=== PATIENT | male | born 1975 | race Caucasian/White ===

== ENCOUNTER → 2016-08-05 | Outpatient (REF) | payer OTHER ==
[2016-08-07 00:06] LABS: Lyme Disease IgG/IgM Antibodie <0.91 ISR (0.00-0.90); Lyme Disease IgM Ab Quantitati <0.80 index (0.00-0.79)
== END ==
LOC: M LAB REF 13:23
PROVIDERS: ATTEND Nurse Practitioner Family
DX: L08.89 Other specified local infections of the skin and subcutaneous tissue (principal); W57.XXXA Bitten or stung by nonvenomous insect and other nonvenomous arthropods, initial encounter

== ENCOUNTER → 2017-01-02 | Outpatient (CLI) | payer OTHER ==
[~2017-01-02] MED LIST: ALEV220T26 PO; EXCETAB81 PO
[2017-01-02 14:19] LABS: MEAN CORPUSCULAR HEMOGLOBIN 30.9 pg (27.0-33.0); MEAN CORPUSCULAR HGB CONC 33.5 g/dl (32.0-36.5); MEAN CORPUSCULAR VOLUME 92.1 fl (80.0-96.0); PLATELET COUNT, AUTOMATED 196 10^3/uL (150-450); RED CELL DISTRIBUTION WIDTH 12.2 % (11.5-14.5); WHITE BLOOD COUNT 7.6 10^3/uL (4.0-10.0)
[2017-01-02 15:02] LABS: ANION GAP 7 MEQ/L (8-16); BLOOD UREA NITROGEN 18 MG/DL (7-18); CALCIUM LEVEL 8.8 MG/DL (8.5-10.1); CARBON DIOXIDE LEVEL 29 MEQ/L (21-32); CHLORIDE LEVEL 107 MEQ/L (98-107); CREATININE FOR GFR 1.03 MG/DL (0.70-1.30); GLOMERULAR FILTRATION RATE > 60.0 (>60); GLUCOSE, FASTING 91 MG/DL (70-105); POTASSIUM SERUM 4.4 MEQ/L (3.5-5.1); SODIUM LEVEL 143 MEQ/L (136-145)
== END ==
LOC: M LAB 13:13
PROVIDERS: ATTEND Internal Medicine
DX: Z00.00 Encounter for general adult medical examination without abnormal findings (principal)

== ENCOUNTER 2017-01-03 05:57 | Day surgery (SDC) | payer OTHER ==
[~2017-01-03] VITALS: Ht 185.4 cm; Wt 129.3 kg
[2017-01-03] MEDS ORDERED: CEFAZOLIN SOD 1 GM in APPROPRIATE DILUENT 1 EA IV ONE (06:15)
[2017-01-03] MEDS ORDERED: LIDOCAINE 1% MDV 20ML VIAL SQ PRN (06:15)
[2017-01-03] MEDS ORDERED: LR 1,000 ML IV SCH ×3 (06:15→10:00)
[2017-01-03] MEDS ORDERED: fentaNYL 250 MCG/5 ML INJECTION (J3010) As Ordered ONE (07:09)
[2017-01-03] MEDS ORDERED: MIDAZOLAM INJ 2 MG/2 ML VIAL (J2250) As Ordered ONE (07:09)
[2017-01-03] MEDS ORDERED: LIDOCAINE 2% INJ 100 MG/5 ML SDV (FOR ANES.) As Ordered ONE (07:13)
[2017-01-03] MEDS ORDERED: PROPOFOL 200 MG/20 ML VIAL As Ordered ONE ×2 (07:13→08:14)
[2017-01-03] MEDS ORDERED: ROCURONIUM BROMIDE 50 MG/5 ML VIAL/SYRINGE As Ordered ONE (07:14)
[2017-01-03] MEDS ORDERED: BUPIVACAINE/EPIN 0.25% 30 ML VIAL As Ordered ONE ×2 (07:14→09:06)
[2017-01-03] MEDS ORDERED: KETOROLAC 60 MG/2 ML VIAL (J1885) As Ordered ONE (09:04)
[2017-01-03] MEDS ORDERED: ONDANSETRON 4MG/2ML VIAL (J2405) As Ordered ONE (09:04)
[2017-01-03] MEDS ORDERED: ONDANSETRON 4MG/2ML VIAL (J2405) IV PRN ×2 (09:45→10:00)
[2017-01-03] MEDS: fentaNYL 100 MCG/2 ML INJECTION (J3010) IV PRN ×4 (09:49→10:04)
[2017-01-03] MEDS ORDERED: NORCO, ANEXSIA 5/325MG TABLET (HYDROcodone/ACETAMINOPHEN) PO PRN (10:00)
[2017-01-03] MEDS ORDERED: MORPHINE 2 MG/ML 1ML SYRINGE IV PRN (10:00)
[2017-01-03] MEDS: MEPERIDINE INJ 25 MG/ML VIAL (J2175) IV PRN ×2 (10:27→10:34)
[2017-01-03 11:10] VITALS: BP 109/58
[2017-01-03] MEDS ORDERED: KETOROLAC 30 MG/ML VIAL (J1885) IV SCH (15:00)
--- NOTE | 2017-01-04 18:57 | RO ---
DATE OF PROCEDURE: 01/03/2017 PREOPERATIVE DIAGNOSIS: Left inguinal hernia. POSTOPERATIVE DIAGNOSIS: Left inguinal hernia. PROCEDURE: Laparoscopic left inguinal hernia repair with 3-D Max mesh (TEPP) SURGEON: Elbert Orellana ANESTHESIA: General endotracheal anesthesia. ESTIMATED BLOOD LOSS: Was minimal. FLUIDS: Crystalloid. BRIEF PROCEDURE SUMMARY: The patient was brought to the operating room and was given general anesthesia after adequate anesthesia and preoperative antibiotics were given the patient was prepped and draped in sterile fashion. Next, a periumbilical incision was made with skin knife. Blunt dissection was carried down to fascia. Fascia was incised with electrocautery longitudinally and the rectus muscle was retracted laterally and anteriorly. Dissection was performed in the preperitoneal space with a dilating balloon under direct visualization and a stationary balloon was placed in the preperitoneal space insufflated to 15 mm of pressure. Two 5 mm trocars were placed along the midline after this. Next the loose areolar tissue covering the posterior aspect of the pubis and Marcellus's was taken down with hook cautery and then blunt dissection lateral to the internal ring was performed to find the hernia / peritoneum dissection continued up lateral again because of a relatively low transverse abdominis muscle fascia and this continued up to the cord structures. The peritoneum was dissected off the cord structures after a good deal of dissection. Eventually once this was dissected where the hernia developed or went into the pelvis, the loose areolar tissue / fatty tissue overlying the vessels was taken down with hook cautery as well. Next a 3-D Max mesh large was tacked in place with a secure strap and both on the Marcellus's pubis and lateral on the tail of the mesh as well as on anteriorly on the rectus muscle area was desufflated under direct visualization and 0 Vicryl was used close the fascia at the umbilicus and 4-0 Vicryl was used to close all incisions. Steri-Strips and dry sterile dressing was applied. The patient was awakened from anesthesia, extubated, brought to recovery room awake, alert, hemodynamically stable. Sponge and needle counts correct times two.
== END 2017-01-03 12:00 | disposition home or self-care (01) ==
LOC: M SDC 05:57
PROVIDERS: ATTEND Surgery
DX: K40.90 Unilateral inguinal hernia, without obstruction or gangrene, not specified as recurrent (principal); I49.8 Other specified cardiac arrhythmias; G47.30 Sleep apnea, unspecified; Z79.899 Other long term (current) drug therapy
CPT/HCPCS: 49650; C1781; J0690; J1885; J2175; J2250; J2405; J3010

== ENCOUNTER 2017-01-25 07:33 | Day surgery (SDC) | payer OTHER ==
[~2017-01-25] VITALS: Ht 185.4 cm; Wt 131.5 kg
[2017-01-25] MEDS ORDERED: LR 1,000 ML IV ONE (07:45)
[2017-01-25] MEDS ORDERED: fentaNYL 100 MCG/2 ML INJECTION (J3010) As Ordered ONE (07:56)
[2017-01-25] MEDS ORDERED: MIDAZOLAM INJ 2 MG/2 ML VIAL (J2250) As Ordered ONE (07:56)
[2017-01-25] MEDS ORDERED: PROPOFOL 200 MG/20 ML VIAL As Ordered ONE ×8 (07:56→11:30)
[2017-01-25] MEDS ORDERED: LIDOCAINE 2% INJ 100 MG/5 ML SDV (FOR ANES.) As Ordered ONE (07:56)
[2017-01-25] MEDS ORDERED: BUPIVACAINE HCL 0.5% 30 ML VIAL As Ordered ONE (08:39)
[2017-01-25] MEDS ORDERED: LIDOCAINE 1% MDV 20ML VIAL As Ordered ONE ×2 (08:39→09:29)
[2017-01-25] MEDS ORDERED: dexameTHASONE 4 MG/ML 1ML VIAL (J1100) As Ordered ONE ×2 (08:40→10:10)
[2017-01-25] MEDS ORDERED: HYDR-3713 PO (11:44)
[2017-01-25] MEDS ORDERED: KETOROLAC 30 MG/ML VIAL (J1885) As Ordered ONE (11:58)
[2017-01-25] MEDS ORDERED: ONDANSETRON 4MG/2ML VIAL (J2405) IV PRN (12:15)
[2017-01-25] MEDS ORDERED: KETOROLAC 30 MG/ML VIAL (J1885) IV PRN (12:15)
[2017-01-25] MEDS ORDERED: LR 1,000 ML IV SCH (12:15)
[2017-01-25] MEDS ORDERED: fentaNYL 100 MCG/2 ML INJECTION (J3010) IV PRN (12:15)
[2017-01-25] MEDS: PERCOCET 5MG/325MG TAB PO PRN ×2 (12:20→13:00)
--- NOTE | 2017-01-25 12:55 | RO ---
DATE OF PROCEDURE: 01/25/2017 PREPROCEDURE DIAGNOSIS: Bilateral hallux rigidus. POSTPROCEDURE DIAGNOSIS: Bilateral hallux rigidus. PROCEDURE: Bilateral first metatarsophalangeal joint fusion. SURGEON: Nathanael Underwood DPM WIDE LOAD ESCORT: ANESTHESIA: Monitored anesthesia care, preoperative injection of 30 mL of 1:1 mixture of 1% lidocaine plain and 0.5% Marcaine plain. ESTIMATED BLOOD LOSS: Minimal. MATERIALS: Arthrex 3.5 headless screws, #3-0 and #4-0 Vicryl and #4-0 nylon. INJECTABLES: 2 mL of Decadron 4 mg per mL. Additional injectables of 10 mL of 1% Lidocaine plain. COMPLICATIONS: None. CONDITION: Stable. Buster Wei is a 41-year-old male who presents to [facility] with complaints of painful arthritic joints to his feet. He presents today for surgical correction. The patient, side, and site were identified and marked in preoperative holding area. Consent was reviewed and obtained. The complications and alternatives to the procedure were explained to the patient in detail and all questions were answered. DESCRIPTION OF PROCEDURE: The patient was brought to the operating room and placed on the operating room table in supine position. Monitored anesthesia care was delivered by the anesthesia team. The patient received Ancef preoperatively. Preoperative injection of 30 mL of 1:1 mixture of 1% lidocaine plain and 0.5% Marcaine plain was injected into both feet, 15 on each. Both feet were prepped and draped in the normal fashion. Tourniquets were applied to both ankles and inflated to 250 mmHg, first done on the right side. Attention was drawn to the first metatarsophalangeal joint and a doral incision was drawn and carried through with a #15 blade. Dissection was carried down until the metatarsophalangeal joint capsule was identified. Bovie was used to maintain hemostasis along the way. T-capsulotomy was performed exposing the metatarsal head and joint. Severe arthritic changes were noted with large osteophytes and exostosis to the dorsal, medial and lateral aspect of the joint. There were severe arthritic changes with erosion of cartilage noted to nearly the entire metatarsal head, as well as phalanx base. After the osteophytes and exostosis were removed with sagittal saw, the remaining cartilage was removed using the Arthrex reamer on both the metatarsal head and phalanx base. A pin was used to fenestrate the head of the metatarsal and base of the phalanx. Following this, under fluoroscopic guidance, cross screws were thrown using Arthrex 3.5 headless screws. Good position was noted. Good purchase in the bone was available. The site was irrigated with normal saline. Any remaining bone edges were smoothed with a rasp. Again, the site was irrigated. Capsular repair was performed with #3-0 Vicryl, subcutaneous with #4-0 Vicryl and skin closure with #4-0 nylon. The same procedure was performed on the left. The tourniquet on the right was deflated and inflated on the left side. Dorsal incisions were drawn and carried through with a #15 blade. Dissection was carried to the metatarsophalangeal joint capsule. Again, a T-capsulotomy was performed exposing the metatarsal head and joint. Some erosion was noted to the cartilage where again large osteophytes and exostoses were noted. These were removed with Rongeur and sagittal saw. The cartilage was denuded with Arthrex reamers and two cross screws were thrown, size 3.5 headless under fluoroscopic guidance. Remaining bone edges were rasped until smooth. The site was irrigated with normal saline. Capsular repair was performed with #3-0 Vicryl, subcutaneous with #4-0 Vicryl. Skin closure with #4-0 nylon. 1 mL of Decadron was injected on both feet. Sterile dressings were applied. The tourniquet was deflated. The patient was brought to postanesthesia care unit (PACU) stable, neurovascularly intact. He will be partial weight bearing to both feet. He will followup in the office in 2 days.
[2017-01-25 14:00] VITALS: BP 138/76
--- NOTE | 2017-01-25 14:20 | REP ---
Foot series: Single view. History: Intraoperative film. 15 seconds of fluoroscopy time is reported. Findings: A single fluoroscopically obtained last image hold spot radiograph documents pins across the first MTP joint. No laterality markers are seen. Signed by Ki Heller MD 01/25/2017 02:46 P
== END 2017-01-25 14:07 | disposition home or self-care (01) ==
LOC: M SDC 07:33
PROVIDERS: ATTEND Podiatrist Foot & Ankle Surgery
DX: M20.21 Hallux rigidus, right foot (principal); M20.22 Hallux rigidus, left foot; R00.9 Unspecified abnormalities of heart beat; I44.30 Unspecified atrioventricular block; M19.90 Unspecified osteoarthritis, unspecified site; G47.30 Sleep apnea, unspecified; E66.9 Obesity, unspecified
CPT/HCPCS: 28750; 73630; 88300; 97116; C1713; J0690; J1100; J1885; J2250; J3010

== ENCOUNTER 2017-06-02 08:47 | Emergency (ER) | payer OTHER ==
[2017-06-02] MEDS: NS 1,000 ML IV ×2 (09:08→10:15)
[2017-06-02 09:10] LABS: BASO % 0.2 % (0.0-1.0); HEMATOCRIT 45.8 % (42.0-52.0); HEMOGLOBIN 15.3 g/dl (13.5-17.5); IMMATURE GRANULOCYTE % 0.5 % (0-3.0); LYMPH # 0.6 10^3/uL (1.5-4.5); MEAN CORPUSCULAR HEMOGLOBIN 30.7 pg (27.0-33.0); MEAN CORPUSCULAR HGB CONC 33.4 g/dl (32.0-36.5); MONO # 0.3 10^3/uL (0.0-0.8); MONO % 2.7 % (0.0-5.0); NEUTROPHILS # 11.3 10^3/uL (1.8-7.7); NEUTROPHILS % 91.6 % (36.0-66.0); PLATELET COUNT, AUTOMATED 171 10^3/uL (150-450); RED BLOOD COUNT 4.98 10^6/uL (4.30-6.10); RED CELL DISTRIBUTION WIDTH 12.6 % (11.5-14.5); WHITE BLOOD COUNT 12.4 10^3/uL (4.0-10.0)
[2017-06-02 09:48] LABS: LACTIC ACID SEPSIS PROTOCOL 7.8 MMOL/L (0.4-2.0)
[2017-06-02 09:50] LABS: ALBUMIN 4.2 GM/DL (3.2-5.2); ALBUMIN/GLOBULIN RATIO 1.11 (1.00-1.93); ALKALINE PHOSPHATASE 77 U/L (45-117); ALT/SGPT 48 U/L (12-78); ANION GAP 12 MEQ/L (8-16); AST/SGOT 55 U/L (7-37); BILIRUBIN,DIRECT 0.2 MG/DL (0.0-0.2); BILIRUBIN,TOTAL 0.8 MG/DL (0.2-1.0); BLOOD UREA NITROGEN 12 MG/DL (7-18); CALCIUM LEVEL 8.4 MG/DL (8.5-10.1); CARBON DIOXIDE LEVEL 23 MEQ/L (21-32); CHLORIDE LEVEL 108 MEQ/L (98-107); CPK CREATINE PHOSPHOKINASE 160 U/L (39-308); CREATININE FOR GFR 1.48 MG/DL (0.70-1.30); GLOMERULAR FILTRATION RATE 56.3 (>60); GLUCOSE, FASTING 237 MG/DL (70-100); SALICYLATE LEVEL 1.7 MG/DL (5.0-30.0); SODIUM LEVEL 143 MEQ/L (136-145)
[2017-06-02 09:52] LABS: ACETAMINOPHEN LEVEL < 2.0 UG/ML (10.0-30.0); ETHYL ALCOHOL (ETHANOL) < 0.003 % (0.000-0.010)
[2017-06-02 13:06] LABS: LACTIC ACID SEPSIS PROTOCOL 1.2 MMOL/L (0.4-2.0)
[2017-06-02 13:44] LABS: AMPHETAMINES LEVEL URINE NEGATIVE (NEGATIVE); BARBITURATES URINE NEGATIVE (NEGATIVE); BENZODIAZEPINES URINE NEGATIVE (NEGATIVE); CANNABINOIDS URINE NEGATIVE (NEGATIVE); COCAINE METABOLITE URINE POSITIVE (NEGATIVE); METHADONE URINE NEGATIVE (NEGATIVE); OPIATES URINE NEGATIVE (NEGATIVE); PHENCYCLIDINE URINE NEGATIVE (NEGATIVE)
[2017-06-02] MEDS: ONDANSETRON 4MG/2ML VIAL (J2405) IV (14:25)
== END 2017-06-02 14:55 | disposition home or self-care (01) ==
LOC: M ED 08:47
DX: F10.129 Alcohol abuse with intoxication, unspecified (principal); F14.129 Cocaine abuse with intoxication, unspecified; F17.210 Nicotine dependence, cigarettes, uncomplicated; I44.30 Unspecified atrioventricular block
CPT/HCPCS: J2405

== ENCOUNTER 2017-06-09 08:03 | Emergency (ER) | payer OTHER | END 2017-06-09 09:51 | disposition home or self-care (01) | LOC: M ED 08:03 | DX: F14.10 Cocaine abuse, uncomplicated (principal) | CPT/HCPCS: 99283 ==

== ENCOUNTER → 2019-03-22 | Outpatient (REF) | payer OTHER ==
[~2019-03-22] MED LIST changes: +HYDR-3713 PO
[2019-03-22 13:27] LABS: SEMEN APPEARANCE OPAQUE (OPAQUE); SEMEN VISCOSITY LIQUID (LIQUID); SEMEN VOLUME 6.5 ml (2.0-5.0)
[2019-03-22 13:28] LABS: WBC CONCENTRATION <=1 M/ml (<=1 M/ml)
== END ==
LOC: M LAB REF 12:36
PROVIDERS: ATTEND Urology
DX: Z98.52 Vasectomy status (principal)

== ENCOUNTER → 2022-01-10 | Outpatient (CLI) | payer OTHER ==
[~2022-01-10] MED LIST changes: +GASTROGRAFIN SOLUTION 30ML As Ordered ONE
== END ==
LOC: M RAD 08:07
PROVIDERS: ATTEND Surgery
DX: R10.32 Left lower quadrant pain (principal)

== ENCOUNTER → 2022-04-08 | Outpatient (CLI) | payer OTHER ==
[~2022-04-08] MED LIST changes: -GASTROGRAFIN SOLUTION 30ML As Ordered ONE
== END ==
LOC: M OUTALCOH 07:56
PROVIDERS: ATTEND Psychiatry & Neurology Psychiatry
DX: Z13.39 Encounter for screening examination for other mental health and behavioral disorders (principal)

== ENCOUNTER 2022-04-22 15:04 | Outpatient (RCR) | payer OTHER | END 2022-05-13 | LOC: M OUTALCOH 15:04 | PROVIDERS: ATTEND Psychiatry & Neurology Psychiatry | DX: F14.20 Cocaine dependence, uncomplicated (principal); F15.20 Other stimulant dependence, uncomplicated; F12.10 Cannabis abuse, uncomplicated ==

== ENCOUNTER 2022-06-08 15:00 | Outpatient (RCR) | payer OTHER | END 2022-06-12 | LOC: M OUTALCOH 15:00 | PROVIDERS: ATTEND Psychiatry & Neurology Psychiatry | DX: F14.20 Cocaine dependence, uncomplicated (principal); F15.20 Other stimulant dependence, uncomplicated; F12.10 Cannabis abuse, uncomplicated ==

== ENCOUNTER 2022-07-06 15:00 | Outpatient (RCR) | payer OTHER | END 2022-07-13 | LOC: M OUTALCOH 15:00 | PROVIDERS: ATTEND Psychiatry & Neurology Psychiatry | DX: F14.20 Cocaine dependence, uncomplicated (principal); F15.20 Other stimulant dependence, uncomplicated; F12.10 Cannabis abuse, uncomplicated ==

== ENCOUNTER → 2023-03-08 | Outpatient (CLI) | payer OTHER ==
[2023-03-08 12:59] LABS: HEMATOCRIT 40.3 % (42.0-52.0); HEMOGLOBIN 13.6 g/dl (13.5-17.5); MEAN CORPUSCULAR HEMOGLOBIN 30.4 pg (27.0-33.0); MEAN CORPUSCULAR HGB CONC 33.7 g/dl (32.0-36.5); PLATELET COUNT, AUTOMATED 264 10^3/uL (150-450); RED BLOOD COUNT 4.48 10^6/uL (4.30-6.10); WHITE BLOOD COUNT 5.5 10^3/uL (4.0-10.0)
[2023-03-08 13:47] LABS: BLOOD UREA NITROGEN 15 MG/DL (9-23); CALCIUM LEVEL 9.3 MG/DL (8.5-10.1); CARBON DIOXIDE LEVEL 26 MMOL/L (20-31); CHLORIDE LEVEL 104 MMOL/L (98-107); CREATININE FOR GFR 0.78 MG/DL (0.70-1.30); GLOMERULAR FILTRATION RATE > 60.0 (>60); GLUCOSE, FASTING 92 MG/DL (60-100); MAGNESIUM LEVEL 2.1 MG/DL (1.8-2.4); POTASSIUM SERUM 4.3 MMOL/L (3.5-5.1); SODIUM LEVEL 136 MMOL/L (136-145); THYROID STIMULATING HORMONE 1.112 uIU/ML (0.55-4.78)
== END ==
LOC: M LAB 12:09
PROVIDERS: ATTEND Physician Assistant
DX: R07.2 Precordial pain (principal)

== ENCOUNTER → 2023-03-09 | Outpatient (CLI) | payer OTHER | LOC: M PLAIMG 12:54 | PROVIDERS: ATTEND Physician Assistant | DX: R07.2 Precordial pain (principal); I48.3 Typical atrial flutter; I48.0 Paroxysmal atrial fibrillation; I51.7 Cardiomegaly; I35.8 Other nonrheumatic aortic valve disorders; I31.39 Other pericardial effusion (noninflammatory) ==

== ENCOUNTER → 2023-03-21 | Outpatient (CLI) | payer OTHER ==
[~2023-03-21] MED LIST changes: +ISOVUE-370 76% 100ML VIAL As Ordered ONE
== END ==
LOC: M RAD 08:05
PROVIDERS: ATTEND Physician Assistant
DX: R07.2 Precordial pain (principal); I27.81 Cor pulmonale (chronic)
CPT/HCPCS: 71260; Q9967

== ENCOUNTER → 2023-03-24 | Outpatient (REF) | payer OTHER ==
[~2023-03-24] MED LIST changes: -ISOVUE-370 76% 100ML VIAL As Ordered ONE
== END ==
LOC: M LAB REF 12:40
PROVIDERS: ATTEND Internal Medicine
DX: F41.9 Anxiety disorder, unspecified (principal); G47.33 Obstructive sleep apnea (adult) (pediatric)

== ENCOUNTER → 2023-04-10 | Outpatient (CLI) | payer OTHER ==
[~2023-04-10] MED LIST changes: +ATEN50TA2 PO; +COLC0.6T47 PO; +DIGO0.123 PO; +MENSCAP PO; +PRED20TA PO
== END ==
LOC: M PLAIMG 07:55
PROVIDERS: ATTEND Physician Assistant
DX: I31.39 Other pericardial effusion (noninflammatory) (principal); R07.2 Precordial pain; I48.3 Typical atrial flutter

== ENCOUNTER 2023-04-12 12:10 | Day surgery (SDC) | payer OTHER ==
[~2023-04-12] VITALS: Ht 185.4 cm; Wt 120.0 kg
[~2023-04-12 12:10] MED LIST changes: -ATEN50TA2 PO; -COLC0.6T47 PO; -DIGO0.123 PO; -MENSCAP PO; -PRED20TA PO
[2023-04-12] MEDS ORDERED: PRED20TA PO (12:17)
[2023-04-12] MEDS ORDERED: ATEN50TA2 PO (12:17)
[2023-04-12] MEDS ORDERED: DIGO0.123 PO (12:23)
[2023-04-12] MEDS ORDERED: COLC0.6T47 PO (12:23)
[2023-04-12 14:30] LABS: BASO % 0.1 % (0.0-1.0); EOS # 0.1 10^3/uL (0.0-0.5); EOS % 0.9 % (0.0-3.0); HEMATOCRIT 45.1 % (42.0-52.0); HEMOGLOBIN 15.1 g/dl (13.5-17.5); LYMPH # 2.4 10^3/uL (1.5-5.0); LYMPH % 23.6 % (24.0-44.0); MEAN CORPUSCULAR HEMOGLOBIN 30.6 pg (27.0-33.0); MEAN CORPUSCULAR HGB CONC 33.5 g/dl (32.0-36.5); MEAN CORPUSCULAR VOLUME 91.5 fl (80.0-96.0); MONO # 0.6 10^3/uL (0.0-0.8); MONO % 5.8 % (2.0-8.0); NEUTROPHILS % 69.1 % (36.0-66.0); PLATELET COUNT, AUTOMATED 165 10^3/uL (150-450); RED BLOOD COUNT 4.93 10^6/uL (4.30-6.10); WHITE BLOOD COUNT 10.1 10^3/uL (4.0-10.0)
[2023-04-12] MEDS ORDERED: ISOVUE-370 76% 100ML VIAL As Ordered ONE (14:40)
[2023-04-12] MEDS: MORPHINE 4 MG/ML 1ML VIAL IV ONE (14:43)
[2023-04-12] MEDS: ONDANSETRON 4MG 2ML VIAL IV ONE (14:43)
[2023-04-12 14:55] LABS: ALBUMIN 3.8 G/DL (3.2-5.2); BILIRUBIN,DIRECT 0.5 MG/DL (<0.4); BILIRUBIN,TOTAL 1.9 MG/DL (0.3-1.2); TOTAL PROTEIN 6.7 G/DL (5.7-8.2)
[2023-04-12] MEDS: MORPHINE 2 MG/ML 1ML VIAL IV ONE (15:42)
[2023-04-12] MEDS: NS 1,000 ML IV SCH (16:54)
[2023-04-12] MEDS ORDERED: MENSCAP PO (17:55)
[2023-04-12] MEDS ORDERED: HOME MED LIST COMPLETE! XX SCH (18:00)
[2023-04-12] MEDS ORDERED: ROCURONIUM BROMIDE 50MG/5ML VIAL As Ordered ONE (18:30)
[2023-04-12] MEDS ORDERED: LIDOCAINE 2% 100MG/5ML SDV (FOR ANES.) As Ordered ONE (18:30)
[2023-04-12] MEDS ORDERED: propofoL 200 MG/20 ML VIAL As Ordered ONE (18:30)
[2023-04-12] MEDS ORDERED: ONDANSETRON 4MG 2ML VIAL As Ordered ONE (18:31)
[2023-04-12] MEDS ORDERED: MIDAZOLAM INJ 2MG/2ML VIAL As Ordered ONE (18:32)
[2023-04-12] MEDS ORDERED: fentaNYL 100 MCG/2 ML INJECTION As Ordered ONE (18:32)
[2023-04-12] MEDS: ceFAZolin 2 GM/D5W 50 ML IV BAG As Ordered ONE (19:05)
[2023-04-12] MEDS ORDERED: ACETAMINOPHEN 1000MG 100ML IV BAG As Ordered ONE (19:10)
[2023-04-12] MEDS ORDERED: SUGAMMADEX SODIUM 500 MG/5 ML VIAL (BRIDION) As Ordered ONE (20:56)
[2023-04-12] MEDS ORDERED: HYDROmorphone HCL 2MG/ML 1ML VIAL As Ordered ONE (20:57)
[2023-04-12] MEDS ORDERED: METOCLOPRAMIDE INJ 10MG/2ML VIAL IV PRN (21:25)
[2023-04-12] MEDS ORDERED: HYDROMORPHONE HCL 0.5 MG/ 0.5 ML SYRINGE IV PRN (21:25)
[2023-04-12] MEDS ORDERED: NS 1,000 ML IV SCH (21:25)
[2023-04-12] MEDS ORDERED: fentaNYL 100 MCG/2 ML INJECTION IV PRN (21:25)
[2023-04-12] MEDS ORDERED: ONDANSETRON 4MG 2ML VIAL IV PRN (21:25)
[2023-04-12] MEDS: oxyCODONE 5MG TAB PO PRN (21:32)
[2023-04-12 21:55] VITALS: BP 134/70; TEMP 98.6; O2SAT 97
[2023-04-12] MEDS ORDERED: HYDR-3713 PO (23:16)
== END 2023-04-12 22:26 | disposition home or self-care (01) ==
LOC: M ED 12:10 → M SDC 17:37
PROVIDERS: ATTEND Surgery
DX: K40.31 Unilateral inguinal hernia, with obstruction, without gangrene, recurrent (principal); I10 Essential (primary) hypertension; I48.0 Paroxysmal atrial fibrillation; R51.9 Headache, unspecified; Z79.899 Other long term (current) drug therapy
CPT/HCPCS: 49651; 74177; 76857; 80047; 80076; 81001; 83690; 85025; 87635; 96374; 96375; 96376; 99284; C1781; J0131; J0665; J0690; J1100; J1170; J2250; J2405; J3010; Q9967

== ENCOUNTER → 2023-04-28 | Outpatient (CLI) | payer OTHER ==
[~2023-04-28] MED LIST changes: +ATEN50TA2 PO; +COLC0.6T47 PO; +DIGO0.123 PO; +MENSCAP PO; +PRED20TA PO
[2023-04-28 12:30] LABS: HEMATOCRIT 40.6 % (42.0-52.0); HEMOGLOBIN 14.1 g/dl (13.5-17.5); MEAN CORPUSCULAR HEMOGLOBIN 31.3 pg (27.0-33.0); MEAN CORPUSCULAR HGB CONC 34.7 g/dl (32.0-36.5); PLATELET COUNT, AUTOMATED 243 10^3/uL (150-450); RED BLOOD COUNT 4.51 10^6/uL (4.30-6.10); WHITE BLOOD COUNT 8.6 10^3/uL (4.0-10.0)
[2023-04-28 13:06] LABS: BLOOD UREA NITROGEN 17 MG/DL (9-23); CALCIUM LEVEL 9.1 MG/DL (8.5-10.1); CARBON DIOXIDE LEVEL 29 MMOL/L (20-31); CHLORIDE LEVEL 107 MMOL/L (98-107); CREATININE FOR GFR 0.72 MG/DL (0.70-1.30); GLOMERULAR FILTRATION RATE > 60.0 (>60); GLUCOSE, FASTING 105 MG/DL (60-100); POTASSIUM SERUM 4.7 MMOL/L (3.5-5.1); SODIUM LEVEL 139 MMOL/L (136-145)
== END ==
LOC: M LAB 10:34
PROVIDERS: ATTEND Physician Assistant
DX: R22.2 Localized swelling, mass and lump, trunk (principal)

== ENCOUNTER → 2023-12-25 | Outpatient (REF) | payer OTHER | LOC: M LAB REF 16:26 | PROVIDERS: ATTEND Internal Medicine | DX: R20.2 Paresthesia of skin (principal) ==

== ENCOUNTER → 2024-02-12 | Outpatient (REF) | payer OTHER ==
[2024-02-12 13:49] LABS: HEPATITIS B SURFACE ANTIBODY NEGATIVE (POSITIVE)
[2024-02-12 14:00] LABS: HEPATITIS B SURFACE ANTIGEN NEGATIVE (NEGATIVE)
[2024-02-12 14:13] LABS: HIV 1&2 SCREEN NEGATIVE (NEGATIVE)
[2024-02-12 14:21] LABS: HEPATITIS C VIRUS ABY INDEX < 0.02 INDEX (<0.8)
[2024-02-12 15:16] LABS: GC DNA AMPLIFICATION NEGATIVE (NEGATIVE)
== END ==
LOC: M LAB REF 12:34
PROVIDERS: ATTEND Nurse Practitioner Family
DX: F16.288 Hallucinogen dependence with other hallucinogen-induced disorder (principal); F10.11 Alcohol abuse, in remission; F14.11 Cocaine abuse, in remission

== ENCOUNTER → 2024-02-16 | Outpatient (CLI) | payer OTHER | LOC: M RAD 08:57 | PROVIDERS: ATTEND Nurse Practitioner Family | DX: R10.2 Pelvic and perineal pain (principal) ==